=== PATIENT | female | born 1945 | race Caucasian/White ===

== ENCOUNTER 2024-02-01 06:55 | Day surgery (SDC) | payer MEDICARE, BC ==
[~2024-02-01 06:55] MED LIST: Dexamethasone 4 MG/ML 5 ML MDV ONE; EPINEPHrine 1 MG/ML SDV ONE; Lidocaine 1% 5 ML VIAL ONE; Propofol 200 MG/20 ML SDV ONE; Ropivacaine 0.5% 5 MG/ML 30 ML SDV ONE; Sodium Chloride 0.9% 10 ML Syringe FLUSH PRN; Sodium Chloride 0.9% 10 ML Syringe FLUSH SCH; ceFAZolin 2 GM Vial ONE; fentaNYL 100 MCG/2 ML SDV ONE
[2024-02-01] MEDS ORDERED: fentaNYL 100 MCG/2 ML SDV IVPUSH PRN (07:13)
[2024-02-01] MEDS ORDERED: Ondansetron 4 MG/2 ML SDV IVPUSH PRN (07:13)
[2024-02-01] MEDS ORDERED: HYDROmorphone 0.5 MG/0.5 ML Syringe IVPUSH PRN (07:13)
[2024-02-01] MEDS: Lactated Ringers 1,000 ML IV SCH (07:20)
[2024-02-01] MEDS ORDERED: Midazolam 1 MG/ML 2 ML SDV ONE (07:34)
[2024-02-01] MEDS ORDERED: ePHEDrine 50 MG/ML SDV ONE (08:04)
[2024-02-01] MEDS ORDERED: Lactated Ringers 1,000 ML ONE (08:07)
[2024-02-01] MEDS ORDERED: Ondansetron 4 MG/2 ML SDV ONE (08:37)
[2024-02-01] MEDS ORDERED: dexmedeTOMIDine HCl 200 MCG/2 ML SDV ONE (08:47)
[2024-02-01] MEDS ORDERED: Propofol 200 MG/20 ML SDV ONE (09:12)
[2024-02-01] MEDS: Morphine 8 MG, EPINEPHrine 0.3 MG, Cefuroxime 750 MG, Ketorolac 30 MG, Sodium Chloride ... PRN (09:14)
[2024-02-01] MEDS: Tranexamic Acid 1,000 MG/10 ML Vial ONE (09:18)
[2024-02-01] MEDS ORDERED: Ketorolac 15 MG/ML SDV ONE (09:40)
[2024-02-01] MEDS: oxyCODONE 5 MG Tab PO PRN (11:12)
[2024-02-01] MEDS: Vancomycin 1 GM SDV ONE (11:38)
== END 2024-02-01 13:50 | disposition home or self-care (01) ==
LOC: JD.SDS 06:55
PROVIDERS: ATTEND Orthopaedic Surgery
DX: M17.11 Unilateral primary osteoarthritis, right knee (principal); E11.43 Type 2 diabetes mellitus with diabetic autonomic (poly)neuropathy; E89.0 Postprocedural hypothyroidism; E66.01 Morbid (severe) obesity due to excess calories; K21.9 Gastro-esophageal reflux disease without esophagitis; E78.2 Mixed hyperlipidemia; Z79.899 Other long term (current) drug therapy
CPT/HCPCS: 0055T; 27447; 64447; 73560; 82947; 97162; A9270; C1713; C1776; J0171; J0690; J0697; J1100; J1885; J2250; J2270; J2405; J2704; J2795; J3010; J3370; J3490; J7120; 01402; 99100

== ENCOUNTER 2024-06-25 20:29 | Emergency (ER) | payer MEDICARE, BC ==
[2024-06-25] MEDS: Oxymetazoline 0.05% Nasal Spray 30 ML Bottle NAS ONE (21:17)
[2024-06-25] MEDS: Ondansetron 4 MG Tab.DIS PO ONE (21:17)
== END 2024-06-25 22:39 | disposition home or self-care (01) ==
LOC: JD.ED 20:29
DX: R04.0 Epistaxis (principal); I10 Essential (primary) hypertension; E78.00 Pure hypercholesterolemia, unspecified; Z95.5 Presence of coronary angioplasty implant and graft; Z88.0 Allergy status to penicillin; Z79.890 Hormone replacement therapy; Z79.899 Other long term (current) drug therapy; Z79.84 Long term (current) use of oral hypoglycemic drugs
CPT/HCPCS: 99283; A9270